=== PATIENT | male | born 1975 | race Caucasian/White ===

== ENCOUNTER 2018-08-25 17:11 | Inpatient (IN) ==
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
[2018-08-25 17:56] LABS: Bilirubin,Urine Negative (Negative); Blood,Urine Negative (Negative); Clarity,Urine Clear (Clear); Color,Urine Yellow (Yellow); Glucose,Urine (UA) Normal (Normal); Ketones,Urine Negative (Negative); Leukocyte Esterase,Urine Negative (Negative); Nitrite,Urine Negative (Negative); PH,Urine 6.5 pH Units (5.0-8.0); Protein,Urine Negative (Neg-Trace); Specific Gravity,Urine 1.015 (1.010-1.025); Urobilinogen,Urine Normal (Normal)
[2018-08-25 18:01] LABS: Basophils % 0.7 %; Eosinophils % 0.7 %; Hemoglobin 12.3 g/dL (12.9-16.9); Immature Granulocytes % 0.2 % (0-4); Lymphocytes # 1.7 K/mcL (0.6-4.6); Lymphocytes % 41.1 %; Mean Corpuscular Volume 73.3 fL (83.0-100.0); Mean Platelet Volume 10.3 fL (9.4-12.4); Monocytes # 0.4 K/mcL (0.0-1.3); Monocytes % 9.9 %; Neutrophils # 1.9 K/mcL (1.6-8.9); Platelet Count 265 K/mcL (140-400); Red Blood Count 5.59 M/mcL (4.19-5.50); Red Cell Distribution Width 18.9 % (11.5-14.5); Segmented Neutrophils % 47.4 %
[2018-08-25 18:05] LABS: Amphetamine Screen,Urine Negative ng/mL (Cutoff=1000); Barbiturate Screen,Urine Negative ng/mL (Cutoff=200); Benzodiazepines Screen,Urine Negative ng/mL (Cutoff=200); Cannabinoid Screen,Urine Negative ng/mL (Cutoff = 50); Cocaine Screen,Urine Negative ng/mL (Cutoff= 300); Opiate Screen,Urine Negative ng/mL (Cutoff=300); Phencyclidine Screen,Urine Negative ng/mL (Cutoff=25)
[2018-08-25 18:16] LABS: Acetaminophen < 10 mcg/mL (10-20); Blood Urea Nitrogen 9 mg/dL (6-20); Calcium 9.1 mg/dL (8.6-10.3); Carbon Dioxide 21 mEq/L (23-29); Chloride 109 mEq/L (98-107); Ethanol 249 mg/dL (Less than 10); Glucose 78 mg/dL (70-105); Osmolality,Calculated 282 (280-300); Salicylate < 2.5 mg/dL (15.0-30.0); Sodium 137 mEq/L (136-145)
[2018-08-25 19:04] LABS: BUN/Creatinine Ratio 9 (6-26); eGFR For Non-African Americans > 60 (> 60)
--- NOTE | 2018-08-26 00:28 | Emergency Department Note ---
Disposition Clinical Impression: Depression Qualifiers: Depression Type: unspecified Qualified Code(s): F32.9 - Major depressive disorder, single episode, unspecified Alcohol intoxication Qualifiers: Complication of substance-induced condition: with unspecified complication Qualified Code(s): F10.929 - Alcohol use, unspecified with intoxication, unspecified Disposition: Admitted As Inpatient Condition: Good General Adult HPI - General Chief complaint: ED Psychiatric Symptoms Stated complaint: Depression Time Seen by Provider: 08/25/18 17:16 Source: patient, EMS Mode of arrival: EMS Limitations: no limitations - History of Present Illness Pain Scale: 0 - Related Data Allergies Allergy/AdvReac Type Severity Reaction Status Date / Time No Known Allergies Allergy Verified 08/26/18 02:40 Constitutional: Denies: fever Cardiovascular: Denies: chest pain Respiratory: Denies: dyspnea Gastrointestinal: Denies: abdominal pain Neurological: Denies: headache, weakness, numbness Psychiatric: Reports: depression. 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 Hernandez and Dr. Dwight Mckenzie. Please refer to their notes for complete details of the history and physical examination. Patient presented complaining of depression but denied suicidal or homicidal ideation. A pink slip was signed due to his intoxication. His alcohol level was 250 at 1730. The plan is to repeat an alcohol level about 2 AM and when level is normal we will consult 1A for evaluation. Repeat alcohol level was 33. [address] psychiatry consulted to evaluate patient in the emergency department. After evaluation and consultation with the psychiatrist the patient is being admitted to the [address] psychiatric unit. Vital Signs Temperature 98.3 F 08/25/18 17:14 Pulse Rate 121 08/25/18 17:14 Respiratory Rate 22 08/25/18 17:14 Blood Pressure 143/91 08/25/18 17:14 O2 Sat by Pulse Oximetry 98 08/25/18 17:14 Temperature 98.3 F 08/25/18 17:14 Pulse Rate 121 08/25/18 17:14 Respiratory Rate 22 08/25/18 17:14 Blood Pressure 143/91 08/25/18 17:14 O2 Sat by Pulse Oximetry 98 08/25/18 17:14 Oxygen Delivery Oxygen Delivery Room Air Medical Decision Making - Medical Records Medical records reviewed: Yes I reviewed the patient's medical records. - Lab Data Lab results reviewed: Yes I reviewed the patient's lab results. Result diagrams: 08/25/18 17:28 08/25/18 17:28 Lab Results 08/25/18 08/25/18 08/25/18 Range/Units 17:28 17:28 17:45 WBC 4.0 L (4.3-11.1) K/mcL RBC 5.59 H (4.19-5.50) M/mcL Hgb 12.3 L (12.9-16.9) g/dL Hct 41.0 (37.5-50.1) % MCV 73.3 L (83.0-100.0) fL MCH 22.0 L (28.0-33.3) pg MCHC 30.0 L (31.6-35.5) g/dL RDW 18.9 H (11.5-14.5) % Plt Count 265 (140-400) K/mcL MPV 10.3 (9.4-12.4) fL Immature Gran % 0.2 (0-4) % Seg Neutrophils % 47.4 % Lymphocytes % 41.1 % Monocytes % 9.9 % Eosinophils % 0.7 % Basophils % 0.7 % Neutrophils # 1.9 (1.6-8.9) K/mcL Lymphocytes # 1.7 (0.6-4.6) K/mcL Monocytes # 0.4 (0.0-1.3) K/mcL Eosinophils # 0.0 (0.0-0.6) K/mcL Basophils # 0.0 (0.0-0.2) K/mcL Sodium 137 (136-145) mEq/L Potassium 4.0 (3.5-5.1) mEq/L Chloride 109 H (98-107) mEq/L Carbon Dioxide 21 L (23-29) mEq/L BUN 9 (6-20) mg/dL Creatinine 0.96 (0.70-1.30) mg/dL Est GFR ( Amer) > 60 (> 60) Est GFR (Non-Af Amer) > 60 (> 60) BUN/Creatinine Ratio 9 (6-26) Glucose 78 (70-105) mg/dL Calculated Osmolality 282 (280-300) Calcium 9.1 (8.6-10.3) mg/dL Urine Color (Yellow) Urine Clarity (Clear) Urine pH (5.0-8.0) pH Units Ur Specific [place] (1.010-1.025) Urine Protein (Neg-Trace) mg/dL Urine Glucose (UA) (Normal) mg/dL Urine Ketones (Negative) mg/dL Urine Blood (Negative) Urine Nitrite (Negative) Urine Bilirubin (Negative) Urine Urobilinogen (Normal) mg/dL Ur Leukocyte Esterase (Negative) Salicylates < 2.5 L (15.0-30.0) mg/dL Urine Opiates Screen Negative (Eujxlj=437) ng/mL Acetaminophen < 10 L (10-20) mcg/mL Ur Barbiturates Screen Negative (Ozgwzf=531) ng/mL Ur Phencyclidine Scrn Negative (Cutoff=25) ng/mL Ur Amphetamines Screen Negative (Nqvmda=1009) ng/mL U Benzodiazepines Scrn Negative (Afirnk=597) ng/mL Urine Cocaine Screen Negative (Cutoff= 300) ng/mL U Marijuana (THC) Screen Negative (Cutoff = 50) ng/mL Ur Drug Screen Interp See Below Ethyl Alcohol 249 H (Less than 10) mg/dL 08/25/18 08/26/18 Range/Units 17:50 02:29 WBC (4.3-11.1) K/mcL RBC (4.19-5.50) M/mcL Hgb (12.9-16.9) g/dL Hct (37.5-50.1) % MCV (83.0-100.0) fL MCH (28.0-33.3) pg MCHC (31.6-35.5) g/dL RDW (11.5-14.5) % Plt Count (140-400) K/mcL MPV (9.4-12.4) fL Immature Gran % (0-4) % Seg Neutrophils % % Lymphocytes % % Monocytes % % Eosinophils % % Basophils % % Neutrophils # (1.6-8.9) K/mcL Lymphocytes # (0.6-4.6) K/mcL Monocytes # (0.0-1.3) K/mcL Eosinophils # (0.0-0.6) K/mcL Basophils # (0.0-0.2) K/mcL Sodium (136-145) mEq/L Potassium (3.5-5.1) mEq/L Chloride (98-107) mEq/L Carbon Dioxide (23-29) mEq/L BUN (6-20) mg/dL Creatinine (0.70-1.30) mg/dL Est GFR ( Amer) (> 60) Est GFR (Non-Af Amer) (> 60) BUN/Creatinine Ratio (6-26) Glucose (70-105) mg/dL Calculated Osmolality (280-300) Calcium (8.6-10.3) mg/dL Urine Color Yellow (Yellow) Urine Clarity Clear (Clear) Urine pH 6.5 (5.0-8.0) pH Units Ur Specific [place] 1.015 (1.010-1.025) Urine Protein Negative (Neg-Trace) mg/dL Urine Glucose (UA) Normal (Normal) mg/dL Urine Ketones Negative (Negative) mg/dL Urine Blood Negative (Negative) Urine Nitrite Negative (Negative) Urine Bilirubin Negative (Negative) Urine Urobilinogen Normal (Normal) mg/dL Ur Leukocyte Esterase Negative (Negative) Salicylates (15.0-30.0) mg/dL Urine Opiates Screen (Kzrsdf=968) ng/mL Acetaminophen (10-20) mcg/mL Ur Barbiturates Screen (Wpklja=359) ng/mL Ur Phencyclidine Scrn (Cutoff=25) ng/mL Ur Amphetamines Screen (Wbbkdd=0377) ng/mL U Benzodiazepines Scrn (Ebhhhe=571) ng/mL Urine Cocaine Screen (Cutoff= 300) ng/mL U Marijuana (THC) Screen (Cutoff = 50) ng/mL Ur Drug Screen Interp Ethyl Alcohol 33 H (Less than 10) mg/dL
[2018-08-26] MEDS ORDERED: Haloperidol Lactate 5 MG/ML VIAL IM PRN (05:15)
[2018-08-26] MEDS ORDERED: Ibuprofen 400 MG TABLET PO PRN (05:15)
[2018-08-26] MEDS ORDERED: *HR* LORazepam 2 MG/ML VIAL IM PRN (05:15)
[2018-08-26] MEDS ORDERED: MOM Conc 10 ML UD.LIQ PO PRN (05:15)
[2018-08-26] MEDS ORDERED: Mag Hydrox/Al Hydrox/Simeth 30 ML UDC PO PRN (05:15)
[2018-08-26] MEDS ORDERED: *HR* LORazepam 1 MG TABLET PO PRN (05:15)
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
[2018-08-26] MEDS: Nicotine 21 MG PATCH.TD24 TD SCH (12:42)
[2018-08-26] MEDS: Venlafaxine XR (24 HR) 37.5 MG CAP.ER.24H PO SCH (12:43)
[2018-08-26] MEDS: hydrOXYzine pamoate 25 MG CAPSULE PO PRN (21:11)
[2018-08-26] MEDS: traZODone 50 MG TABLET PO PRN (21:11)
[2018-08-27] MEDS: Venlafaxine XR (24 HR) 37.5 MG CAP.ER.24H PO SCH (08:57)
[2018-08-27] MEDS: Nicotine 21 MG PATCH.TD24 TD SCH (08:57)
[2018-08-27] MEDS ORDERED: Venlafaxine XR (24 HR) 37.5 MG CAP.ER.24H PO ONE (11:08)
--- NOTE | 2018-08-27 11:19 | Psychiatry Progress Note ---
Date of Encounter: 08/27/18 Time of Encounter: 11:12 Subjective Interval history: Client reports he is feeling a little better. Still has low energy and disrupted sleep but believes his mood is improving and appetite is good. Denies SI today. Admits that depression was getting worse and grateful that his family got him help but thinks he is on the right track. Willing to follow up as an outpatient but transportation will be an issue. Discussed with psych social worker who intends to look into options. Client has support from family and girlfriend. No alcohol withdrawal symptoms. Will increase dose of antidepressant and plan for discharge tomorrow. Review of Systems Constitutional: Denies: fever, chills, weakness, weight change Eyes: Denies: eye pain, vision change Ears, Nose, Throat: Denies: ear pain, throat pain, dental pain, hearing loss, congestion Cardiovascular: Denies: chest pain, palpitations, dyspnea on exertion Respiratory: Denies: cough, dyspnea, wheezes Gastrointestinal: Denies: abdominal pain, nausea, vomiting, diarrhea, constipation Musculoskeletal: Denies: joint swelling, joint pain Neurological: Denies: headache, weakness, numbness, memory loss Results - Vital Signs Vital Signs: Temp Pulse Resp BP Pulse Ox 98.2 F 84 16 137/94 95 08/27/18 09:40 08/27/18 09:40 08/27/18 09:40 08/27/18 09:40 08/27/18 09:40 Assessment and Plan (1) Major depress dis, severe Current visit: Yes Status: Acute Plan: Continue hospitalization, Close observation, Suicide Precautions per unit protocol, Encourage participation in unit milieu, Group Therapy, Monitor appetite Risks, benefits, side effects, alternatives discussed w/pt: Yes Patient agreeable to treatment: Yes (2) Alcohol abuse Current visit: Yes Status: Acute Plan: Continue hospitalization, Close observation, Suicide Precautions per unit protocol, Encourage participation in unit milieu, Group Therapy, Monitor sleep, Monitor appetite Risks, benefits, side effects, alternatives discussed w/pt: Yes Patient agreeable to treatment: Yes Consult Discharge Plan - Plan Psychiatry Exam - Constitutional Vitals: Temp Pulse Resp BP Pulse Ox 98.2 F 84 16 137/94 95 08/27/18 09:40 08/27/18 09:40 08/27/18 09:40 08/27/18 09:40 08/27/18 09:40 General appearance: age & developmentally appropriate, well-groomed, well- nourished - Musculoskeletal Gait: normal Station: relaxed Strength & Tone: normal for patient - Psychiatric Patient Orientation: Yes Person, Yes Time, Yes Place Level of alertness: Alert Behavior: calm, cooperative Psychomotor activity: Normal Eye Contact: Maintains Eye Contact Mood Description: Depressed Affect description: congruent with mood Speech Volume: Normal Speech pattern: normal rate, normal rhythm, normal tone, fluent, spontaneous Language & Vocabulary: consistent with education Thought Process: Linear Thought Content: No Suicidal ideation, No Homicidal ideation, No Overt delusions Perceptual Disturbances: No Auditory hallucinations, No Visual hallucinations Attention Span Ability: Capable of Focused Attention Memory Description: Grossly Intact Patient Reliability: Reliable Historian Fund of knowledge: Yes abstraction ability, Yes aware of current events Intelligence Estimate: Average Judgment: Fair Insight: Partial
[2018-08-27] MEDS: hydrOXYzine pamoate 25 MG CAPSULE PO PRN (21:11)
[2018-08-27] MEDS: traZODone 50 MG TABLET PO PRN (21:12)
[2018-08-28] MEDS: hydrOXYzine pamoate 25 MG CAPSULE PO PRN ×2 (08:50→13:35)
[2018-08-28] MEDS: Nicotine 21 MG PATCH.TD24 TD SCH (08:50)
[2018-08-28] MEDS ORDERED: Venlafaxine XR (24 HR) 75 MG CAP.ER.24H PO SCH (09:00)
[2018-08-28 09:07] VITALS: BP 119/86
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
== END 2018-08-28 14:15 | disposition home or self-care (01) | DRG 754 ==
LOC: EMEROOARM 17:11 → 1ANU 08-26 05:06
PROVIDERS: ADMIT Psychiatry & Neurology Psychiatry; ATTEND Psychiatry & Neurology Psychiatry